=== PATIENT | male | born 1940 | race Caucasian/White ===

== ENCOUNTER 2022-03-02 04:25 | Inpatient (IN) | payer OTHER ==
[~2022-03-02] VITALS: Ht 172.7 cm; Wt 84.1 kg
[~2022-03-02 04:25] MED LIST: CITA20TA3 PO; LORA10TA6 PO; MOME200A IN; [UNRECOGNIZED DRUG - CODE] PO
[2022-03-02] MEDS ORDERED: HYDROcodone-ACET 10/325MG TAB PO ONE (07:30)
[2022-03-02] MEDS ORDERED: KETOROLAC TROMETH 30 MG/ML 1ML VIAL IV ONE (07:30)
[2022-03-02] MEDS ORDERED: KETOROLAC TROMETH 60MG/2ML VIAL IM ONE (07:45)
[2022-03-02 07:57] LABS: Basophils # (auto) 0 10 ^3/uL (0-0.2); Basophils % (auto) 0.2 % (0.0-2.0); Eosinophils # (auto) 0 10 ^3/uL (0-0.8); Hematocrit 29.8 % (41.0-53.0); Lymphocytes # (auto) 0.7 10 ^3/uL (0.4-5.4); Lymphocytes % (auto) 6.9 % (10.0-50.0); Mean Corpuscular Hemoglobin 28.3 pg (28.0-32.0); Mean Corpuscular Hgb Conc. 33.6 g/dL (32.0-36.0); Mean Corpuscular Volume 84.1 fL (80.0-100.0); Monocytes # (auto) 0.8 10 ^3/uL (0-1.3); Monocytes % (auto) 7.7 % (0.0-12.0); Neutrophils # (auto) 8.4 10 ^3/uL (1.6-8.6); Neutrophils % (auto) 85.2 % (37.0-80.0); Nucleated Red Blood Cells % 0.1 %; Red Blood Cells 3.55 10^6/uL (4.5-5.90); Red Cell Distribution Width 18.3 % (11.8-14.3); White Blood Cell 9.8 10^3/uL (4.4-10.8)
[2022-03-02 08:11] LABS: BUN/Creatinine Ratio 11.4; Calcium 9.9 mg/dL (8.5-10.1); Potassium 3.4 mmol/L (3.5-5.1)
[2022-03-02 08:14] LABS: Bilirubin, Total 0.7 mg/dL (0.2-1.0); Total Protein 7.7 g/dL (6.4-8.2)
[2022-03-02] MEDS ORDERED: POTASSIUM EFFERVESENT TAB 25 MEQ PO ONE (09:15)
[2022-03-02] MEDS ORDERED: HYDROmorphone HCL 2 MG/ML VL IV ONE (11:30)
[2022-03-02 12:01] LABS: Urine Bacteria NONE SEEN /hpf (None Seen); Urine Blood Negative /uL (Negative); Urine Specific Gravity 1.024 (1.001-1.035); Urine WBC 2 /hpf (0 - 3)
[2022-03-02] MEDS ORDERED: SODIUM CHLORIDE 0.9% 1,000 ML IV ONE ×2 (15:00)
[2022-03-02 15:47] LABS: Alcohol, Urine < 3.0 mg/dL (0-10); Amphetamine Screen, Urine NEGATIVE (NEGATIVE); Barbiturate Scree,Urine NEGATIVE (NEGATIVE); Benzodiazephine Screen, Urine NEGATIVE (NEGATIVE); Cannabinoid Screen, Urine NEGATIVE (NEGATIVE); Cocaine Screen, Urine NEGATIVE (NEGATIVE); Opiate Scree,Urine POSITIVE (NEGATIVE); Phencyclidine Screen, Urine NEGATIVE (NEGATIVE)
[2022-03-02 18:58] VITALS: BP 146/71
[2022-03-02 19:15] VITALS: BP 146/71
[2022-03-02 22:00] VITALS: BP 131/72
[2022-03-03] MEDS: MORPHINE SULFATE INJECTION 2 MG/ML SYRG IV PRN ×4 (03:43→20:17)
[2022-03-03 05:00] VITALS: BP 114/55
[2022-03-03 05:50] LABS: Basophils # (auto) 0 10 ^3/uL (0-0.2); Basophils % (auto) 0.3 % (0.0-2.0); Eosinophils # (auto) 0 10 ^3/uL (0-0.8); Eosinophils % (auto) 0.1 % (0.0-7.0); Hematocrit 28.1 % (41.0-53.0); Hemoglobin 9.5 g/dL (13.5-17.5); Lymphocytes # (auto) 0.5 10 ^3/uL (0.4-5.4); Mean Corpuscular Hemoglobin 28.8 pg (28.0-32.0); Mean Corpuscular Hgb Conc. 33.8 g/dL (32.0-36.0); Mean Corpuscular Volume 85.2 fL (80.0-100.0); Monocytes # (auto) 0.9 10 ^3/uL (0-1.3); Monocytes % (auto) 10.3 % (0.0-12.0); Neutrophils # (auto) 7.2 10 ^3/uL (1.6-8.6); Neutrophils % (auto) 83.3 % (37.0-80.0); Red Blood Cells 3.29 10^6/uL (4.5-5.90); Red Cell Distribution Width 18.1 % (11.8-14.3); White Blood Cell 8.7 10^3/uL (4.4-10.8)
[2022-03-03 06:01] LABS: Albumin 2.4 g/dL (3.4-5.0); Potassium 3.6 mmol/L (3.5-5.1)
[2022-03-03 06:03] LABS: BUN/Creatinine Ratio 15.9; Calcium 8.8 mg/dL (8.5-10.1)
[2022-03-03 06:06] LABS: Bilirubin, Total 0.4 mg/dL (0.2-1.0); Total Protein 6.4 g/dL (6.4-8.2)
[2022-03-03 09:00] VITALS: BP 129/64
[2022-03-03] MEDS: ENOXAPARIN SOD 40 MG/0.4 ML SYRINGE SC SCH (10:25)
[2022-03-03] MEDS ORDERED: ONDANSETRON HCL 4 MG/2 ML VIAL IV PRN (12:15)
[2022-03-03] MEDS ORDERED: ACETAMINOPHEN 325 MG TAB PO PRN (12:15)
[2022-03-03] MEDS ORDERED: DOCUSATE SOD 100 MG CAP PO ONE (12:15)
[2022-03-03] MEDS ORDERED: PANTOPRAZOLE 40 MG TAB PO ONE (12:15)
[2022-03-03 13:00] VITALS: BP 124/57
[2022-03-03 15:00] VITALS: BP 124/57
[2022-03-03] MEDS: ALBUTEROL SULF 2.5 MG/0.5ML(0.5%) NEB SOLN NEB PRN (15:00)
[2022-03-03] MEDS: IPRATROPIUM BROM 0.5 MG/2.5ML INH SOL NEB PRN (15:00)
[2022-03-03 16:30] VITALS: BP 123/59
[2022-03-03] MEDS: DOCUSATE SOD 100 MG CAP PO SCH (20:28)
[2022-03-03 22:00] VITALS: BP 123/62
[2022-03-04] MEDS: MORPHINE SULFATE INJECTION 2 MG/ML SYRG IV PRN ×2 (01:11→06:13)
[2022-03-04] MEDS: DexAMETHasone 4 MG TAB PO SCH ×2 (01:14→06:13)
[2022-03-04 05:00] VITALS: BP_SYST 103; BP_SYST 120; BP_DIAS 61; BP_DIAS 67
[2022-03-04] MEDS: ALBUTEROL SULF 2.5 MG/0.5ML(0.5%) NEB SOLN NEB PRN ×4 (05:57→22:41)
[2022-03-04] MEDS: IPRATROPIUM BROM 0.5 MG/2.5ML INH SOL NEB PRN ×4 (05:57→22:41)
[2022-03-04 09:08] VITALS: BP 124/52
[2022-03-04] MEDS: DOCUSATE SOD 100 MG CAP PO SCH ×2 (10:06→21:15)
[2022-03-04] MEDS: PANTOPRAZOLE 40 MG TAB PO SCH (10:07)
[2022-03-04] MEDS: ENOXAPARIN SOD 40 MG/0.4 ML SYRINGE SC SCH (10:07)
[2022-03-04] MEDS: HYDROcodone-ACET 5/325MG TAB PO PRN ×2 (10:17→14:39)
[2022-03-04 13:00] VITALS: BP 120/69
[2022-03-04] MEDS: DexAMETHasone SOD PHOS 4 MG/1ML SDV INJ IV SCH ×2 (14:38→21:15)
[2022-03-04] MEDS ORDERED: LACTULOSE 20Gm/30ML SOLN PO ONE (15:00)
[2022-03-04 17:00] VITALS: BP 130/68
[2022-03-04 22:00] VITALS: BP 132/65
[2022-03-05] MEDS: HYDROcodone-ACET 5/325MG TAB PO PRN ×3 (02:48→21:09)
[2022-03-05 05:00] VITALS: BP 127/73
[2022-03-05] MEDS: DexAMETHasone SOD PHOS 4 MG/1ML SDV INJ IV SCH ×3 (05:25→21:09)
[2022-03-05] MEDS: DOCUSATE SOD 100 MG CAP PO SCH ×2 (09:30→21:10)
[2022-03-05] MEDS: PANTOPRAZOLE 40 MG TAB PO SCH (09:30)
[2022-03-05] MEDS: ENOXAPARIN SOD 40 MG/0.4 ML SYRINGE SC SCH (09:36)
[2022-03-05 13:00] VITALS: BP 134/75
[2022-03-05] MEDS ORDERED: MAGNESIUM CITRATE SOLUTION 300 ML BTL PO ONE (13:30)
[2022-03-05 17:00] VITALS: BP 128/66
[2022-03-05] MEDS: ALBUTEROL SULF 2.5 MG/0.5ML(0.5%) NEB SOLN NEB PRN (21:22)
[2022-03-05] MEDS: IPRATROPIUM BROM 0.5 MG/2.5ML INH SOL NEB PRN (21:22)
[2022-03-05 22:00] VITALS: BP 118/67
[2022-03-06 05:05] VITALS: BP 128/68
[2022-03-06] MEDS: DexAMETHasone SOD PHOS 4 MG/1ML SDV INJ IV SCH ×3 (05:14→22:05)
[2022-03-06] MEDS: IPRATROPIUM BROM 0.5 MG/2.5ML INH SOL NEB PRN (05:31)
[2022-03-06] MEDS: ALBUTEROL SULF 2.5 MG/0.5ML(0.5%) NEB SOLN NEB PRN (05:31)
[2022-03-06 06:20] LABS: Basophils # (auto) 0 10 ^3/uL (0-0.2); Eosinophils # (auto) 0 10 ^3/uL (0-0.8); Hemoglobin 7.6 g/dL (13.5-17.5); Lymphocytes # (auto) 0.8 10 ^3/uL (0.4-5.4); Monocytes # (auto) 0.7 10 ^3/uL (0-1.3)
[2022-03-06 06:21] LABS: BUN/Creatinine Ratio 61.8; Calcium 8.9 mg/dL (8.5-10.1); Potassium 4.7 mmol/L (3.5-5.1)
[2022-03-06 06:26] LABS: Basophils % (auto) 0.1 % (0.0-2.0); Hematocrit 21.9 % (41.0-53.0); Lymphocytes % (auto) 7.4 % (10.0-50.0); Mean Corpuscular Hemoglobin 29.3 pg (28.0-32.0); Mean Corpuscular Hgb Conc. 34.7 g/dL (32.0-36.0); Mean Corpuscular Volume 84.5 fL (80.0-100.0); Monocytes % (auto) 6.2 % (0.0-12.0); Neutrophils # (auto) 9.3 10 ^3/uL (1.6-8.6); Neutrophils % (auto) 86.3 % (37.0-80.0); Nucleated Red Blood Cells % 0.2 %; Red Cell Distribution Width 17.9 % (11.8-14.3); White Blood Cell 10.7 10^3/uL (4.4-10.8)
[2022-03-06 07:04] VITALS: BP 128/68
[2022-03-06 09:00] VITALS: BP 131/69
[2022-03-06] MEDS: PANTOPRAZOLE 40 MG TAB PO SCH (09:41)
[2022-03-06] MEDS: ENOXAPARIN SOD 40 MG/0.4 ML SYRINGE SC SCH (09:42)
[2022-03-06] MEDS: DOCUSATE SOD 100 MG CAP PO SCH ×2 (09:42→20:32)
[2022-03-06 13:00] VITALS: BP 116/76
[2022-03-06] MEDS ORDERED: FLEET ENEMA(ADULT) 135 ML PR ONE (14:15)
[2022-03-06 17:00] VITALS: BP 115/61
[2022-03-06] MEDS ORDERED: IOHEXOL 300 MG/ML 100ML BOTTLE IJ ONE (18:32)
[2022-03-06] MEDS: MORPHINE SULFATE INJECTION 2 MG/ML SYRG IV PRN (20:33)
[2022-03-06 22:00] VITALS: BP 120/63
[2022-03-07] MEDS: ALBUTEROL SULF 2.5 MG/0.5ML(0.5%) NEB SOLN NEB PRN (00:23)
[2022-03-07] MEDS: IPRATROPIUM BROM 0.5 MG/2.5ML INH SOL NEB PRN (00:23)
[2022-03-07 03:05] VITALS: BP 131/66
[2022-03-07] MEDS: MORPHINE SULFATE INJECTION 2 MG/ML SYRG IV PRN (03:05)
== END 2022-03-07 03:20 | disposition short-term general hospital (02) | DRG 543 ==
LOC: ER 04:25 → EDBD 04:25 → OVERFLOW 14:15 → WEST WING 16:45
PROVIDERS: ADMIT Registered Nurse; ATTEND Internal Medicine Geriatric Medicine
DX: M48.54XA Collapsed vertebra, not elsewhere classified, thoracic region, initial encounter for fracture (principal); C79.51 Secondary malignant neoplasm of bone; G82.20 Paraplegia, unspecified; G95.20 Unspecified cord compression; G95.89 Other specified diseases of spinal cord; C61 Malignant neoplasm of prostate; E78.5 Hyperlipidemia, unspecified; E87.6 Hypokalemia; G89.4 Chronic pain syndrome; I10 Essential (primary) hypertension; I25.10 Atherosclerotic heart disease of native coronary artery without angina pectoris; K59.00 Constipation, unspecified; M81.0 Age-related osteoporosis without current pathological fracture; J44.9 Chronic obstructive pulmonary disease, unspecified; M10.9 Gout, unspecified; Z20.822 Contact with and (suspected) exposure to COVID-19; M19.90 Unspecified osteoarthritis, unspecified site; M54.50 Low back pain, unspecified; R33.9 Retention of urine, unspecified; Z85.46 Personal history of malignant neoplasm of prostate; Z92.3 Personal history of irradiation; Z95.1 Presence of aortocoronary bypass graft; Z95.5 Presence of coronary angioplasty implant and graft
CPT/HCPCS: 36415; 70450; 71045; 72131; 72146; 74177; 80048; 80053; 80061; 80307; 81001; 83036; 83735; 84484; 85025; 87086; 93005; 94640; 96361; 96374; 97110; 97163; G0378; J1100; J1885; J2405